=== PATIENT | male | born 1940 | race Caucasian/White ===

== ENCOUNTER 2021-11-06 21:25 | Observation (INO) | payer MEDICARE, SELFPAY ==
--- NOTE | ~2021-11-06 | XR_ITS ---
XR chest 1V portable 11/06/2021 22:45 Indication: Midsternal chest pain Procedure: AP portable chest Comparison: 11/28/2018 Findings: Heart size normal for technique. Bilateral interstitial infiltrates with peribronchial thic kening. No pleural effusion or pneumothorax. No acute osseous abnormality. Impression: 1: Bilateral interstitial infiltrates which may represent edema or pneumonia. Reviewed, dictated and finalized at location A. Impression: 1: Bilateral interstitial infiltrates which may represent edema or pneumonia.
--- NOTE | ~2021-11-06 | NM_ITS ---
EXAMINATION: NM arlin stress w perfusion DATE: 11/07/2021 13:52 INDICATION: Chest pain. TECHNIQUE: Rest images were obtained following intravenous administration of 9.4 mCi Tc99m tetrofosmi n (Myoview). The patient was infused intravenously with Lexiscan (regadenoson). Then, 30.8 mCi Tc99m tetrofosmin (Myoview) was administered intravenously, and stress images were obtained. Data was recon structed into short axis and horizontal and vertical long axis SPECT images. Gated SPECT images were also obtained. COMPARISON: CT abdomen and pelvis 11/28/2018 FINDINGS: Increased activity below the diaphragm decreases sensitivity and specificity in the inferio r wall. There is no definite reversible or fixed perfusion abnormality to suggest ischemia or infarct ion. There is no segmental wall motion abnormality. Left ventricular ejection fraction measures >70 %. IMPRESSION: 1. No definite ischemia or infarct. 2. Normal left ventricular ejection fraction measuring >70%. Reviewed, dictated and finalized at location A.
--- NOTE | 2021-11-06 21:27 | ECG_ITS ---
Measurements Intervals [place] Rate: 94 P: 71 SD: 146 QRS: 61 QRSD: 108 T: 62 QT: 348 QTc: 437 Interpretive Statements SINUS RHYTHM VENTRICULAR PREMATURE COMPLEX INCOMPLETE RIGHT BUNDLE BRANCH BLOCK BORDERLINE ST ABNORMALITY- ANTEROLAT/INF LEADS BORDERLINE ECG Electronically Signed On 11-07-2021 6:33:26 CDT by Feng Sr D.O.
[2021-11-06 21:29] VITALS: BP 125/100; PULSE 102; RESP 18; TEMP 37.3; O2SAT 93
[2021-11-06] MEDS: ASPIRIN 81 MG CHEWABLE TABLET 324 MG PO (22:44)
[2021-11-06] MEDS: ONDANSETRON INJ 4 MG/2 ML VIAL IV PUSH (22:44)
[2021-11-06] MEDS: NITROGLYCERIN OINTMENT 1 INCH DOSE 0.5 INCH TRANSDERM (22:44)
[2021-11-06 22:45] VITALS: BP 155/76; PULSE 90; RESP 18; O2SAT 92
[2021-11-06 23:00] LABS: Basophils Percent Auto 0.2 % (0.2-1.2); Eosinophils Absolute Auto 0.1 K/mm3 (0-0.3); Eosinophils Percent Auto 0.7 % (0-4.4); Hematocrit 43.5 % (42.0-52.0); Hemoglobin 14.4 g/dL (14.0-18.0); Immature Granulocyte Absolute 0.09 K/mm3 (0.00-0.031); Immature Granulocyte Percent A 0.7 % (0-0.5); Immature Platelet Fraction Pct 15.8 % (0.9-11.2); Lymphocytes Absolute Auto 1.08 K/mm3 (0.9-3.2); Mean Corpuscular HGB Conc 33.1 g/dl (32-36); Mean Corpuscular Hemoglobin 30.4 pg (26-34); Mean Corpuscular Volume 91.8 fl (80-100); Mean Platelet Volume 13.1 fl (7.4-10.4); Monocytes Absolute Auto 0.8 K/mm3 (0.1-0.6); Monocytes Percent Auto 5.9 % (2.6-8.5); Neutrophils Absolute Auto 11.4 K/mm3 (1.3-6.7); Neutrophils Percent Auto 84.5 % (45.5-73.1); Platelet Count Result 85 k/mm3 (150-375); Red Blood Count 4.74 M/mm3 (4.6-6.20); Red Cell Distribution Width 13.5 % (11.5-14.5); White Blood Count 13.5 K/mm3 (4.5-10.0)
[2021-11-06 23:07] LABS: Prothrombin Time 12.9 Seconds (11.1-14.7)
[2021-11-06 23:08] LABS: Partial Thromboplastin Time 32.4 SECONDS (22.3-36.8)
[2021-11-06 23:09] LABS: Appearance Urine Clear (Clear); Bilirubin Urine Negative (Negative); Color Urine Yellow (Yellow); Glucose Urine UA Negative (Negative); Ketones Urine 1+ mg/dL (Negative); Leukocyte Esterase Ur Negative LEU/UL (Negative); Nitrate Urine Negative (Negative); Protein Urine Negative (Negative); Urobilinogen Urine 0.2 mg/dL (<2.0)
[2021-11-06 23:11] LABS: Alanine Aminotransferase 12 U/L (6-50); Albumin Level 3.9 g/dL (3.5-5.1); Alkaline Phosphatase 99 U/L (38-126); Anion Gap 6 mmol/L (8-16); Aspartate Amino Transferase 25 U/L (17-59); Bilirubin,Total 0.8 mg/dL (0.2-1.3); Blood Urea Nitrogen 14 mg/dL (9-20); Calcium 8.2 mg/dL (8.4-10.2); Carbon Dioxide 27 mmol/L (22-30); Chloride 104 mmol/L (98-107); Estimated CRCL calculation 70 ml/min; Estimated Glomerular Filt Rate > 60; Glucose 115 mg/dL (65-110); Lipase 26 U/L (23-300); Potassium 3.8 mmol/L (3.4-5.0); Sodium 137 mmol/L (137-145)
[2021-11-06 23:18] LABS: Add Urine Microscopic? YES; Blood Urine Trace (Negative)
[2021-11-06 23:23] LABS: Troponin I < 0.012 ng/mL (0.000-0.034)
[2021-11-06 23:57] VITALS: BP 140/62; PULSE 94; RESP 20; O2SAT 92
[2021-11-07] VITALS (14 sets, daily range): BP systolic 122–145; BP diastolic 52–92; PULSE 62–92; RESP 16–22; TEMP 36.1–36.9; O2SAT 91–99; BMI 25.4
--- NOTE | 2021-11-07 00:14 | ECG_ITS ---
Measurements Intervals [place] Rate: 87 P: 63 UT: 145 QRS: 60 QRSD: 102 T: 65 QT: 375 QTc: 453 Interpretive Statements SINUS RHYTHM FREQUENT VENTRICULAR PREMATURE COMPLEXES INCOMPLETE RIGHT BUNDLE BRANCH BLOCK BORDERLINE ST ABNORMALITY- ANTEROLATERAL LEADS ABNORMAL ECG Electronically Signed On 11-07-2021 6:37:15 CDT by Feng Sr D.O.
--- NOTE | 2021-11-07 00:24 | ED.CHESTPAIN ---
HPI - Chest Pain General Chief Complaint: Chest Pain Stated Complaint: chest pressure, shortness of breath Time Seen by Provider: 11/06/21 22:28 Source: patient History of Present Illness HPI narrative: Patient presents with chest pressure and nausea. Patient ports symptoms been present since this afternoon says he occasionally gets this from time to time usually is able to lay down and his symptoms resolve however this episode was not so he came to the ER for further evaluation. Reports a history of multiple stents approximately 20 years ago today symptoms feel similar to that time when he needed stents. Symptoms are associated with some nausea and cold sweats reports a history of COPD but denies any acute change in his baseline shortness of breath denies any fevers, cough, congestion denies any abdominal pain or diarrhea. He attempted some antacids at home without relief of symptoms. Related Data Home Medications Medication Instructions Recorded Confirmed amlodipine 5 mg tablet 5 mg PO DAILY 08/06/19 11/07/21 aspirin 325 mg tablet,delayed 325 mg PO DAILY 08/06/19 11/07/21 release atorvastatin 40 mg tablet 40 mg PO DAILY 08/06/19 11/07/21 metoprolol tartrate 25 mg tablet 25 mg PO DAILY 08/06/19 11/07/21 fluticasone 100 mcg-salmeterol 50 1 inh inhalation Q12H 11/07/21 11/07/21 mcg/dose blistr powdr for inhalation (Advair Diskus) tiotropium bromide 1.25 1 puff inhalation DAILY 11/07/21 11/07/21 mcg/actuation mist for inhalation (Spiriva Respimat) Allergies Allergy/AdvReac Type Severity Reaction Status Date / Time No Known Allergies Allergy Verified 11/06/21 21:51 Review of Systems Review of Systems: CONSTITUTIONAL: Denies fever, chills, or sweats. EYES: Denies visual changes, redness, or discharge. ENT: Denies rhinorrhea, congestion, sore throat, or otalgia. CARDIOVASCULAR: Denies chest pain, palpitations, or edema. RESPIRATORY: Denies cough or dyspnea. GASTROINTESTINAL: Denies abdominal pain, nausea, vomiting, or diarrhea. GENITOURINARY: Denies dysuria or hematuria. SKIN: Denies rash or itching. MUSCULOSKELETAL: Denies back pain, joint pain, or myalgia. NEUROLOGIC: Denies headache, numbness, dizziness, or weakness. PSYCHIATRIC: Denies anxiety or depression. All systems reviewed & are unremarkable except as noted in HPI and below PMFSH Past Medical History Medical History (Updated 11/07/21 @ 01:22 by Yordan Rapp MD) Acute otitis externa of right ear positive Atherosclerotic heart disease of [place] coronary artery with angina pectoris Body mass index (bmi) 30.0-30.9, adult (11/25/18) Cellulitis of right elbow Chronic cholecystitis Chronic obstructive pulmonary disease Cough Essential (primary) hypertension Former smoker Gallbladder & bile duct stone with obstruction Gallbladder attack Hyperglycemia Lung nodules Other fatigue Pneumonia of right lower lobe due to infectious organism Pure hypercholesterolemia Sleep apnea in adult Surgical History Surgical History History of appendectomy S/P cholecystectomy Family History Family History Mother , 63 Patient's mother is Family history of arthritis Osteomyelitis Cancer Father , 77 Patient's father is Family history of coronary artery disease, Onset Age: 77 Sibling Family history of arthritis Son BRET (obstructive sleep apnea) Other Family history of sleep apnea Social History Social History Smoking status: Former smoker Second hand tobacco smoke exposure: No Alcohol intake: current Drinks per week: 8 Substance use: never Spiritual care concerns: No Exam Narrative: GENERAL: Well-appearing, well-nourished, and in no acute distress. HEAD: Normocephalic, atraumatic. EYES: PERRLA and EOMI. ENT: Anya landon
[2021-11-07 02:14] LABS: Troponin I < 0.012 ng/mL (0.000-0.034)
--- NOTE | 2021-11-07 02:40 | ADMGEN ---
This patient, Diego Mock, was admitted to IMU Room 213-01 at 0240. Patient/family oriented to hospital policies and general routines including ID bracelet, bed and alarms, visiting hours, pain management, procedures, bathroom and other care routines, personal items, smoking policy, room service/diet, and visiting hours. Information on how to activate the Rapid Response Team has been discussed. Patient/Family are encouraged to report perceived risks to care and to ask questions if they do not understand what they are told or what they should do.
[2021-11-07] MEDS: SODIUM CHLORIDE 0.9% IV 1,000 ML 125 ML IV CONT (02:58)
[2021-11-07 05:25] LABS: Troponin I < 0.012 ng/mL (0.000-0.034)
--- NOTE | 2021-11-07 09:17 | PM.CNCAR ---
Assessment and Plan Assessment and plan (1) Chest pain: Qualifiers: Chest pain type: unspecified Qualified Code(s): R07.9 - Chest pain, unspecified Code(s): R07.9 - Chest pain, unspecified Status: Acute Assessment and Plan: 81-year-old male with CAD, remote history of PCI/stenting-intervention report not available; hypertension, COPD, dyslipidemia. patient admitted to the hospital with episode of chest discomfort. He gives history of sporadic episodes of chest discomfort. Patient has history of remote CAD and PCI/ stenting -intervention report not available. PCI was performed at [facility] as per patient. EKG shows ST-T abnormality, not significantly changed compared to the old EKG. Patient has been ruled out for VA per serial negative cardiac biomarkers. - continue aspirin - resume metoprolol tartrate - initiate statin - will proceed with pharmacological MPI to check for any significant myocardial ischemia given patient's known CAD, remote PCI/stenting and presentation with angina. Will determine need for invasive workup during this hospitalization based on clinical course and MPI findings. (2) Chronic obstructive pulmonary disease: Code(s): J44.9 - Chronic obstructive pulmonary disease, unspecified Status: Acute Assessment and Plan: patient was advised to stop smoking. Bronchodilators. Management as per primary team. (3) Leukocytosis (leucocytosis): Qualifiers: Leukocytosis type: unspecified Qualified Code(s): D72.829 - Elevated white blood cell count, unspecified Code(s): D72.829 - Elevated white blood cell count, unspecified Status: Acute Assessment and Plan: Patient gives history of recent COVID-19 infection about a month ago. He has leukocytosis with left shift and infiltrates on chest x-ray. Management as per primary team. (4) Tobacco abuse: Code(s): Z72.0 - Tobacco use Status: Acute Assessment and Plan: Smoking cessation counseling was done History of Present Illness History of Present Illness Consult date/time: 11/07/21 09:17 Requesting physician: Yordan Rapp MD Consult reason: chest pain Reason For Visit: chest pain Narrative: 81-year-old male with CAD, remote history of PCI/stenting-intervention report not available; hypertension, COPD, dyslipidemia. Patient follows up with Dr. Patterson for his cardiovascular care. He presented to [facility] Emergency Room on 11/06/2021 with complaints of chest pain . At baseline, patient states that he has sporadic episodes of brief chest discomfort. On the day admission, patient had more sustained substernal chest discomfort, that lasted for about 7-8 hours. Symptoms have resolved since hospitalization with nitroglycerin. He has baseline dyspnea on exertion, although he states that he is able to walk about a ?mile before he gets short of breath. Denies any palpitation, dizziness or syncope. Patient gives remote history of PCI/ stenting about 24 years ago. Patient states that he was diagnosed with COVID-19 infection about a month ago. He states that his was not feeling well, and thet both got tested at home. He did not required hospitalization. Patient states that he is vaccinated and boosted for COVID-19. EKG on my personal evaluation showed sinus rhythm, PVC, incomplete right bundle-branch block, subtle ST segment depression in the anterolateral and inferior leads with no significant change on the follow-up EKG. These ST-T wave changes are not significantly changed as compared to the previous EKG from 11/28/2018. Serial troponins are negative. Patient has leukocytosis with a white cell count of 13.5, with left shift and thrombocytopenia. Chest x-ray shows Bilateral interstitial infiltrates which may represent edema or pneumonia. Review of patient's previous medical records indicate that patient had echocardiogram on 11/29/2018 [facility]
--- NOTE | 2021-11-07 09:36 | EST_ITS ---
Patient Info Name: Diego Mock Age: 81 years : 1940 Gender: Male Ht: 72 in Wt: 186 lbs BSA: 2.08 m2 HR: 70 bpm BP: 139 / 70 mmHg Heart Rhythm: Sinus Rhythm Exam Date: 11/07/2021 1:02 PM Exam Location: [facility] Stress Patient Status: Inpatient Admit Date: 11/07/2021 Staff Ordering Physician: Cece Bradford Attending Provider: Sravani Gillis DO Exercise Technologist: Carolyn Strauss CT Nurse: CECE BRADFORD Exam Type: CA stress arlin w NM Study Info Indications R07.9 - Chest pain, unspecified A regadenoson stress test was performed. Summary 1. No abnormal ST/T wave changes with Lexiscan. 2. Occasional stress-induced PVCs, PACs and one isolated 3 beat atrial run. 3. Please correlate with nuclear medicine images, reported separately. 4. No chest discomfort with stress test. Protocol: Lexiscan Stress ECG Details Stage: REST Duration (min): 0 min : 56 sec HR (bpm): 69 SBP (mmHg): 139 DBP (mmHg): 70 Stage: REST Duration (min): 9 min : 33 sec HR (bpm): 71 SBP (mmHg): 139 DBP (mmHg): 70 Stage: STAGE 1 Duration (min): 1 min : 0 sec HR (bpm): 87 SBP (mmHg): 149 DBP (mmHg): 47 Stage: RECOVERY Duration (min): 1 min : 0 sec HR (bpm): 95 SBP (mmHg): 149 DBP (mmHg): 47 Stage: RECOVERY Duration (min): 2 min : 0 sec HR (bpm): 93 SBP (mmHg): 149 DBP (mmHg): 47 Stage: RECOVERY Duration (min): 3 min : 0 sec HR (bpm): 90 SBP (mmHg): 149 DBP (mmHg): 47 Stage: RECOVERY Duration (min): 3 min : 9 sec HR (bpm): 92 SBP (mmHg): 149 DBP (mmHg): 47 Rest HR: 71 bpm Peak HR: 96 bpm Rest Sys BP: 139 mmHg Peak Sys BP: 149 mmHg Max Pred HR: 140 bpm % Max Pred HR: 69 % Target HR: 119 bpm Max RPP: 14,304 bpm*mmHg Termination Reason: Completed protocol Cardiac Symptoms: None Total Time: 1 min : 0 sec Rest Rose BP: 70 mmHg Peak Rose BP: 47 mmHg Total Dose: 0.4 mg Resting ECG Normal sinus rhythm. Incomplete right bundle-branch block. Stress ECG No abnormal ST/T wave changes with Lexiscan. Arrhythmias Occasional stress-induced PVCs, PACs and one isolated 3 beat atrial run. Report Signatures
[2021-11-07] MEDS: METOPROLOL TARTRATE 12.5 MG TABLET PO (16:23)
[2021-11-07] MEDS: ATORVASTATIN 20 MG TABLET PO (16:23)
--- NOTE | 2021-11-07 17:09 | PM.SD2 ---
Same Day Admit/Disch: HPI History of Present Illness Chief complaint: chest pain Narrative: Diego Mock is a 81 year old male Patient presents with chest pressure and nausea.? Patient ports symptoms been present since this afternoon says he occasionally gets this from time to time usually is able to lay down and his symptoms resolve however this episode was not so he came to the ER for further evaluation.? Reports a history of multiple stents approximately 20 years ago today symptoms feel similar to that time when he needed stents.? Symptoms are associated with some nausea and cold sweats reports a history of COPD but denies any acute change in his baseline shortness of breath denies any fevers, cough, congestion denies any abdominal pain or diarrhea.? He attempted some antacids at home without relief of symptoms. 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 Gallbladder attack Hyperglycemia Lung nodules Other fatigue Pneumonia of right lower lobe due to infectious organism Pure hypercholesterolemia Sleep apnea in adult Surgical History Surgical History History of appendectomy S/P cholecystectomy Family History Family History Mother , 63 Patient's mother is Family history of arthritis Osteomyelitis Cancer Father , 77 Patient's father is Family history of coronary artery disease, Onset Age: 77 Sibling Family history of arthritis Son BRET (obstructive sleep apnea) Other Family history of sleep apnea Social History Social History Smoking status: Former smoker Second hand tobacco smoke exposure: No Alcohol intake: current Drinks per week: 8 Substance use: never Spiritual care concerns: No Same Day Admit/Disch: Med Pre-admit Medications Home Medications Medication Instructions Recorded Confirmed Type amlodipine 5 mg tablet 5 mg PO DAILY 08/06/19 11/07/21 History aspirin 325 mg tablet,delayed 325 mg PO DAILY 08/06/19 11/07/21 History release atorvastatin 40 mg tablet 40 mg PO DAILY 08/06/19 11/07/21 History metoprolol tartrate 25 mg tablet 25 mg PO DAILY 08/06/19 11/07/21 History nitroglycerin 0.4 mg sublingual 0.4 mg sublingual Q5MIN PRN Chest 11/07/21 Rx tablet (Nitrostat) Pain #25 tabs fluticasone 250 mcg-salmeterol 50 1 inh inhalation BID 90 days #180 11/09/21 Rx mcg/dose blistr powdr for ea inhalation (Advair Diskus) tiotropium bromide 18 mcg capsule 1 cap inhalation DAILY 90 days #90 11/09/21 Rx with inhalation device (Spiriva caps with HandiHaler) Exam Narrative: Patient is comfortable, NAD HEENT: eyes are clear and none icteric LUNGS:CTA HEART: RR S1S2 ABD: BS+, Soft and nontender Lower extremities: no edema SKIN: nonjaundiced Neuro: grossly intact. DS: Data Data Completed and Pending Labs on day of discharge: Labs from last 24 hours 11/07/21 11/07/21 11/06/21 04:36 01:35 22:58 WBC RBC Hgb Hct MCV MCH MCHC RDW Plt Count MPV Immature Gran % (Auto) Neut % (Auto) Lymph % (Auto) Morgan % (Auto) Eos % (Auto) Baso % (Auto) Lymph # (Auto) Morgan # (Auto) Eos # (Auto) Baso # (Auto) Abs Immat Gran (auto) Absolute Neuts (auto) Absolute Nucleated RBC Nucleated RBC % % Immature Plt Fraction PT INR APTT Sodium Potassium Chloride Carbon Dioxide
== END 2021-11-07 17:39 | disposition home or self-care (01) ==
LOC: ANHED 11-07 01:18 → ANHIMU 11-07 02:34
PROVIDERS: Admitting Provider Internal Medicine; Emergency Provider Emergency Medicine; PCP Internal Medicine; Visit Provider Family Medicine
DX: R07.89 Other chest pain (principal); D72.829 Elevated white blood cell count, unspecified; I25.10 Atherosclerotic heart disease of native coronary artery without angina pectoris; I10 Essential (primary) hypertension; E78.5 Hyperlipidemia, unspecified; F17.210 Nicotine dependence, cigarettes, uncomplicated; J44.9 Chronic obstructive pulmonary disease, unspecified
CPT/HCPCS: 36415; 71045; 78452; 80053; 81001; 83690; 84484; 85025; 85055; 85610; 85730; 93005; 93017; 96374; 99285; A9270; A9502; G0378; J2405; J2785; J7030

== ENCOUNTER 2022-06-22 00:59 | Day surgery (SDC) | payer MEDICARE, SELFPAY ==
[2022-06-14 12:30] VITALS: BMI 26.8
--- NOTE | 2022-06-21 14:04 | WPDANESEPPF ---
Anes - Initial Pre Proc Eval Procedure: Operation Date: 06/22/22 12:30 Proposed Procedures p Esophagogastroduodenoscopy - Shekhar Doran MD Date/Time: 06/21/22 14:04 Surgeon: Shekhar Doran MD Pre Op Diagnosis: epigastric pain Patient Data Age: 82 Gender: M Height: 1.8 m Weight: 87.3 kg Allergies Allergy/AdvReac Type Severity Reaction Status Date / Time No Known Allergies Allergy Verified 06/22/22 10:37 Home Medications Medication Instructions Recorded Confirmed Type amlodipine 5 mg tablet 5 mg PO DAILY 08/06/19 06/14/22 History aspirin 325 mg tablet,delayed 325 mg PO DAILY 08/06/19 06/14/22 History release atorvastatin 40 mg tablet 40 mg PO DAILY 08/06/19 06/14/22 History metoprolol tartrate 25 mg tablet 25 mg PO DAILY 08/06/19 06/14/22 History nitroglycerin 0.4 mg sublingual 0.4 mg sublingual Q5MIN PRN Chest 11/07/21 06/14/22 Rx tablet (Nitrostat) Pain #25 tabs fluticasone 250 mcg-salmeterol 50 1 inh inhalation BID 90 days #180 11/09/21 06/14/22 Rx mcg/dose blistr powdr for ea inhalation (Advair Diskus) tiotropium bromide 18 mcg capsule 1 cap inhalation DAILY 90 days #90 11/09/21 06/14/22 Rx with inhalation device (Spiriva caps with HandiHaler) omeprazole 40 mg capsule,delayed 40 mg PO DAILY #90 caps 05/07/22 06/14/22 Rx release Patient hx anesthesia problems: none Family hx anesthesia problems: none Results Review: All pre-operative results and documents have been reviewed as part of the pre-operative evaluation. 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 Gallbladder attack Hyperglycemia Lung nodules Other fatigue Pneumonia of right lower lobe due to infectious organism Pure hypercholesterolemia Sleep apnea in adult Surgical History Surgical History (Updated 06/21/22 @ 14:05 by Scottie Reveles DO) History of appendectomy History of coronary artery stent placement x3, 1997 S/P cholecystectomy Family History Family History Mother , 63 Patient's mother is Family history of arthritis Osteomyelitis Cancer Father , 77 Patient's father is Family history of coronary artery disease, Onset Age: 77 Sibling Family history of arthritis Son BRET (obstructive sleep apnea) Other Family history of sleep apnea Social History Social History Smoking status: Former smoker Tobacco type: cigarettes Second hand tobacco smoke exposure: No Alcohol intake: current Drinks per week: 6 Substance use: never Substance use type: does not use Living arrangements: with family Spiritual care concerns: No Anes - Eval Final PreProcedure Day of Procedure 06/21/22 14:04 Patient weight: overweight Heart: regular rate and rhythm Lungs: clear to auscultation Airway: Mallampati scale class II Neurological: alert and oriented Last oral intake: >/= 8 hours ASA classification: III Emergent: no Anesthetic plan: proceed Anesthesia type and monitoring: general GIVS and standard monitoring Results Review: All pre-operative results and documents have been reviewed as part of the pre-operative evaluation. Informed Consent: The patient's anesthetic plan and its attendant risks and benefits were discussed with the patient/family/POA. Questions were solicited and answers provided to the satisfaction of the patient/family/POA.
[2022-06-22 10:38] VITALS: BP 160/70; PULSE 66; RESP 18; TEMP 36.1; O2SAT 97; BMI 26.7
--- NOTE | 2022-06-22 10:40 | PM.HPGS ---
History of Present Illness History of Present Illness Consent: Risks, benefits, and alternatives have been discussed and questions answered. Patient agrees to proceed with procedure. Chief complaint: epigastric pain Narrative: Diego Mock is a 82 year old male complains of epigastric aching discomfort that has been present for about 1 month. There has been no specific precipitating episode. No change in medications. Patient states he feels best in the morning. After eating he will belch. He feels better if he belches. Patient states that his rather constant ache. He has no history of emesis. He has tried antacids with no specific relief of symptoms. Patient referred today for EGD to assess epigastric discomfort. patient has a history of cholecystectomy 4-5 years ago. Review of Systems Review of Systems: Review of systems noncontributory. 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 Gallbladder attack Hyperglycemia Lung nodules Other fatigue Pneumonia of right lower lobe due to infectious organism Pure hypercholesterolemia Sleep apnea in adult Surgical History Surgical History (Updated 06/21/22 @ 14:05 by Scottie Reveles DO) History of appendectomy History of coronary artery stent placement x3, 1997 S/P cholecystectomy Family History Family History Mother , 63 Patient's mother is Family history of arthritis Osteomyelitis Cancer Father , 77 Patient's father is Family history of coronary artery disease, Onset Age: 77 Sibling Family history of arthritis Son BRET (obstructive sleep apnea) Other Family history of sleep apnea Social History Social History Smoking status: Former smoker Tobacco type: cigarettes Second hand tobacco smoke exposure: No Alcohol intake: current Drinks per week: 6 Substance use: never Substance use type: does not use Living arrangements: with family Spiritual care concerns: No Meds Home Medications and Allergies Home Medications Medication Instructions Recorded Confirmed Type amlodipine 5 mg tablet 5 mg PO DAILY 08/06/19 06/14/22 History aspirin 325 mg tablet,delayed 325 mg PO DAILY 08/06/19 06/14/22 History release atorvastatin 40 mg tablet 40 mg PO DAILY 08/06/19 06/14/22 History metoprolol tartrate 25 mg tablet 25 mg PO DAILY 08/06/19 06/14/22 History nitroglycerin 0.4 mg sublingual 0.4 mg sublingual Q5MIN PRN Chest 11/07/21 06/14/22 Rx tablet (Nitrostat) Pain #25 tabs fluticasone 250 mcg-salmeterol 50 1 inh inhalation BID 90 days #180 11/09/21 06/14/22 Rx mcg/dose blistr powdr for ea inhalation (Advair Diskus) tiotropium bromide 18 mcg capsule 1 cap inhalation DAILY 90 days #90 11/09/21 06/14/22 Rx with inhalation device (Spiriva caps with HandiHaler) omeprazole 40 mg capsule,delayed 40 mg PO DAILY #90 caps 05/07/22 06/14/22 Rx release Allergies Allergy/AdvReac Type Severity Reaction Status Date / Time No Known Allergies Allergy Verified 06/22/22 10:37 Vital Signs Vital Signs - 24 hr 06/22/22 10:38 Temperature 97.0 F L Pulse Rate 66 Respiratory Rate 18 Blood Pressure 160/70 H Pulse Oximetry 97 Oxygen Delivery Room Air Exam Narrative: Physical exam reveals patient to be alert. Vital signs stable. HEENT exam is unremarkable. Patient is anicteric. Lungs are clear to auscultation and percussion. Heart is without murm
[2022-06-22] MEDS: LACTATED RINGERS 1,000 ML 150 ML IV CONT (10:45)
[2022-06-22 11:20] VITALS: BP 113/67; PULSE 62; RESP 20; O2SAT 100
[2022-06-22 11:30] VITALS: BP 158/84; PULSE 64; RESP 22; O2SAT 99
[2022-06-22 11:40] VITALS: BP 160/84; PULSE 60; RESP 18; O2SAT 100
== END 2022-06-22 12:05 | disposition home or self-care (01) ==
PROVIDERS: PCP Internal Medicine; Visit Provider Internal Medicine Gastroenterology
PROC: 0DJ08ZZ Inspection of Upper Intestinal Tract, Via Natural or Artificial Opening Endoscopic (ICD-10-PCS; CPT 43235; principal; 2022-06-22 12:30)
DX: R10.13 Epigastric pain (principal); I10 Essential (primary) hypertension; I25.10 Atherosclerotic heart disease of native coronary artery without angina pectoris; J44.9 Chronic obstructive pulmonary disease, unspecified; E78.00 Pure hypercholesterolemia, unspecified; G47.30 Sleep apnea, unspecified; Z95.5 Presence of coronary angioplasty implant and graft; Z87.891 Personal history of nicotine dependence; Z79.82 Long term (current) use of aspirin
CPT/HCPCS: 43239; 87081; J2704; J7120

== ENCOUNTER 2022-06-29 08:34 | Outpatient (CLI) | payer MEDICARE, SELFPAY ==
--- NOTE | ~2022-06-29 | CT_ITS ---
CT Abdomen and Pelvis with contrast. History: Abdominal pain. Spiral CT of the abdomen and pelvis was performed after the administration of intravenous contrast. 1 00 cc of Omnipaque 350 was administered intravenously without complication. Dose reduction technique was used on this scan by utilizing automated exposure control and iterative reconstruction technique. The dose-length product (DLP) was 606.98 mGy-cm. COMPARISON: 11/28/2018 Findings: Scans through the lung bases demonstrate 1.2 cm spiculated nodule at the medial right lung base (axial image 23). There is an additional 6 mm round pulmonary nodule at the right lower lobe per ipherally (axial image 10). There is an additional probable 5 mm pulmonary nodule in the right lower lobe (axial image 6).. There is a 6.8 x 5.7 cm hypodense mass in the left hepatic lobe (axial image 26). There are probable several smaller adjacent satellite lesions. There is an additional subtle 2.6 cm hypodense mass near the caudate lobe and IVC (axial image 33). Several additional suspected small, subcentimeter right he patic lobe lesions noted. Suspected ill-defined very subtle hypodense mass at the pancreatic body measuring 2.4 cm in diameter, with probable relative atrophy of the pancreatic tail and dilatation of the pancreatic duct distal t o this suspected mass. The spleen and right adrenal gland are within normal limits. Parapelvic renal cysts are noted. Left adrenal nodule measures 1.8 cm, essentially stable from prior exam. Cholecystec mookie clips noted. No evidence of aortic aneurysm. No lymphadenopathy is seen. There is no evidence of bowel obstruction. There is no evidence to suggest acute appendicitis or dive rticulitis. Images through the pelvis were performed. Urinary bladder unremarkable. Prostate gland and seminal ve sicles are unremarkable. No ascites is seen. Impression: Probable 2.4 cm subtle pancreatic body mass, suspicious for pancreatic adenocarcinoma. Dedicated panc reatic mass protocol CT or MR could be considered to better confirm/delineate this lesion, if clinica lly warranted. Hepatic metastatic disease, including a dominant 6.8 x 5.7 cm lesion in the left hepatic lobe. This i s likely related to metastatic pancreatic cancer, given the above findings. Consider tissue sampling to establish a histologic diagnosis. 1.2 cm spiculated right lower lobe pulmonary nodule. This lesion is suspicious given morphology and s ize. Considerations include both metastatic lesion or a small primary bronchogenic carcinoma. Additional subcentimeter round right lower lobe pulmonary nodules, as detailed above, indeterminate. Additional metastatic lesions are a consideration. 1.8 cm left adrenal nodule is stable since 2019, therefore likely a benign lesion. Reviewed, dictated and finalized at location . ANIZER Impression: Probable 2.4 cm subtle pancreatic body mass, suspicious for pancreatic adenocar cinoma. Dedicated pancreatic mass protocol CT or MR could be considered to bett er confirm/delineate this lesion, if clinically warranted. Hepatic metastatic disease, including a dominant 6.8 x 5.7 cm lesion in the lef t hepatic lobe. This is likely related to metastatic pancreatic cancer, given t he above findings. Consider tissue sampling to establish a histologic diagnosis . 1.2 cm spiculated right lower lobe pulmonary nodule. This lesion is suspicious given morphology and size. Considerations include both metastatic lesion or a s mall primary bronchogenic carcinoma. Additional subcentimeter round right lower lobe pulmonary nodules, as detailed above, indeterminate. Additional metastatic lesions are a consideration. 1.8 cm left adrenal nodule is stab
[2022-06-29 08:58] LABS: Estimated Glomerular Filt Rate > 60
== END 2022-06-29 08:35 | disposition home or self-care (01) ==
PROVIDERS: PCP Internal Medicine; Visit Provider Physician Assistant
DX: R10.9 Unspecified abdominal pain (principal); D35.02 Benign neoplasm of left adrenal gland
CPT/HCPCS: 74177; Q9967

== ENCOUNTER → 2022-07-27 11:17 | Outpatient (CLI) | payer MEDICARE, SELFPAY ==
--- NOTE | ~2022-07-27 | XR_ITS ---
EXAMINATION: XR abdomen/kub 1V INDICATION: Hepatic stent placement TECHNIQUE: Supine views of the abdomen were obtained on 2 radiographs. COMPARISON: CT, 06/29/2022 FINDINGS: Three right upper quadrant stents have been placed. One traverses the expected course of th e common bile duct into the left hepatic lobe, the second along the expected course of the common devaughn e duct into the right hepatic lobe, and the third in the expected location of the pancreatic duct. Al l three and the expected location of the duodenum. The visualized lung bases are clear. A large volum e of colonic stool is present. Calcified atherosclerosis is noted. IMPRESSION: 1. Three right upper quadrant stents as detailed above. Reviewed, dictated and finalized at location B. [employer]ICES[employer] REPRESENTATIVE
== END ==
PROVIDERS: PCP Internal Medicine; Visit Provider Internal Medicine Gastroenterology
DX: Z98.890 Other specified postprocedural states (principal)
CPT/HCPCS: 74018